=== PATIENT | male | born 1975 | race Caucasian/White ===

== ENCOUNTER 2016-10-20 19:37 | Emergency (ER) | payer BC ==
--- NOTE | 2016-10-20 22:45 | ED NURSING NOTES ---
Clinical Report - Nurses [facility] [address] [place] [address] 10/20/2016 19:38 Patient: GABO MURGUIA TRIAGE Triage time 19:44. Acuity: LEVEL 4. Chief Complaint: RIGHT LOWER EXTREMITY SWELLING. LEFT LOWER EXTREMITY SWELLING. Alert. No acute distress. SEPSIS SCREEN: Sepsis Screen: negative. Negative (no infection suspected/documented). --19:49 Marcio De La Garza R.N. 19:44 10/20/16. BP: 148/86 (regular adult cuff) taken on the left arm, via an automated monitor, while lying. HR: 57 (bradycardic). RR: 18 (regular, unlabored and normal). O2 saturation: 100% on room air. Temp: 98.4 F (oral). Pain level now: 0/10. --19:49 Marcio De La Garza R.N. Weight: 102 kg stated. Height/Length: 74 inches Per Patient. BMI: 28.9. --19:45 Marcio De La Garza R.N. Medications Indomethacin Oral. --19:47 Marcio De La Garza R.N. LamISIL [place] External. --19:47 Marcio De La Garza R.N. Medication/allergy information source: the patient. --19:49 Marcio De La Garza R.N. Allergies Ampicillin. --19:48 Marcio De La Garza R.N. Penicillin. --19:48 Marcio De La Garza R.N. History Arrived by private vehicle. Historian: patient. Unaccompanied. Primary physician (Dr. Allison). ( Gabo is 10 weeks post shoulder surgery and given permission to workout; he has been sodium loading by licking himalayan salts and taking potassium. Sent from [facility] (Konrad Forman, provider) to work-up. Gabo said "I did a leg routine on Monday night, and yesterday I noticed my legs started swelling; I stopped sodium loading yesterday; this AM it seemed like it went down but not much and I got a little concerned about it."). 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 SOCIAL HX: Never smoker. Occasional alcohol use. No drug use. He has not traveled outside the [place] No infectious disease exposure. ABUSE ASSESSMENT: Abuse assessment: The patient was asked "Do you feel safe in your home?" and "Has anyone hurt you or threatened to hurt you?". No report of abuse. SELF HARM ASSESSMENT: A self harm assessment was performed. The patient answered "no" to the question "Do you have thoughts of harming or killing yourself?" and "Have you recently had thoughts about harming or killing others?". FALL RISK ASSESSMENT: Fall risk assessment completed. No fall risk identified. NUTRITIONAL RISK ASSESSMENT: The nutritional risk assessment revealed no deficiencies. FUNCTIONAL ASSESSMENT: Functional assessment: no impairments noted. LEARNING NEEDS ASSESSMENT: The learning needs assessment revealed no barriers. SKIN INTEGRITY ASSESSMENT: Skin integrity risk assessment completed. No skin integrity risk identified. --19:49 Marcio De La Garza R.N. ADDITIONAL SURGERIES: Hernia Repair. Shoulder Surgery. --19:49 Marcio De La Garza R.N. Assessment GENERAL / NEURO / PSYCH: Alert. Oriented X 4. Appears in no acute distress. Armando Coma Scale: 15- eyes open spontaneously (4); best verbal response- oriented x 4 (5); best motor response- obeys commands (6). Patient appears calm and cooperative. RESPIRATORY: Respirations not labored. EXTREMITIES: Bilateral 2+ pitting edema of the lower extremities involving both ankles. SKIN: Skin is warm and dry. --19:49 Marcio De La Garza R.N. Interventions ID band on patient. To treatment room. --19:49 Marcio De La Garza R.N. PHYSICAL ASSESSMENT 19:45. Ambulatory to room. GENERAL / NEURO / PSYCH: Oriented X 4. Alert. Appears in no acute distress. No weakness. No numbness. RESPIRATORY: No respiratory distress. Respirations not labored. Breath sounds within normal limits. CVS: Heart sounds within normal limits. Pulses: right radial 2+, left radial 2+, right dorsalis pedis 2+, left dorsalis pedis 2+, right posterior tibial 1+ and left posterior tibial 1+. EXTREMITIES: Bilateral 2+ pitting edema of the lower extremities involving both ankles. Capillary refill is less than 2 seconds in the extremities. Extremities exhibit normal ROM. Neuro-vascular status intact to the extremity. Normal gait. No extremity erythema. No increased warmth on the extremities. Right leg: swelling. Right ankle: swelling. Left leg: swelling. Left ankle: swelling. SKIN: Skin intact. Skin is warm and dry. --23:15 Marcio De La Garza R.N. NURSING PROGRESS NOTES 20:20 10/20/2016 Site #1 started via IV in the right antecubital space with an 20g angiocath, with aseptic technique and good blood return; one attempt. Blood drawn: rainbow set. Labeled in the presence of the patient and sent to the lab. Saline lock flushed with 10 mL saline. --20:20 Marcio De La Garza R.N. 19:45. The initial plan of care for this patient has been created This plan of care was discussed with the patient. master brewer, pulse oximeter and NIBP monitor placed on patient; serger- Lead II. Neuro-vascular extremity check distal to injury: pulses intact, severe edema present, capillary refill <2 seconds and sensation intact. Patient gowned. Warming measures: blanket applied. Reassurance given to the patient. Two patient identifiers checked. Call light placed in reach. Side rails up x 1. Bed placed in lowest position. Brakes of bed on. --20:36 Marcio De La Garza R.N. The patient is calm and resting quietly. GENERAL / NEURO / PSYCH: Alert. Oriented X 4. RESPIRATORY: No respiratory distress. SKIN: Skin is warm and dry. --20:37 Marcio De La Garza R.N. 20:15 10/20/16. BP: 123/76 (regular adult cuff) taken on the left arm, via an automated monitor, while lying. HR: 50 (regular and bradycardic). RR: 16 (regular, unlabored and normal). O2 saturation: 98% on room air. --20:37 Marcio De La Garza R.N. 22:15 10/20/2016 Started bag #1 1000 mL IV Fluids IV NS (Saline); at 1000 mL/hr over 1 hour(s) via site #1. Allergies verified and confirmed 5 rights. IV patency established. IV site checked: no pain, redness, or swelling. IV flushed thoroughly pre- and post-medication administration. Completed per protocol. --22:15 Marcio De La Garza R.N. The patient is calm and resting quietly. GENERAL / NEURO / PSYCH: Alert. Oriented X 4. RESPIRATORY: No respiratory distress. SKIN: Skin is warm and dry. --22:16 Marcio De La Garza R.N. 22:15 10/20/16. BP: 129/91 (regular adult cuff) taken on the left arm, via an automated monitor, while lying. HR: 51 (bradycardic). O2 saturation: 100% on room air. --22:16 Marcio De La Garza R.N. DISPOSITION / DISCHARGE Condition at departure: stable. The goals identified in the patient's plan of care were met. No learning barriers present. Discharge instructions provided and reviewed with the patient. Patient verbalized understanding. Written instructions provided in Icelandic. ( Gabo verbalizes understanding of all d/c instructions including need to f/u with Dr. Allison. He has no questions and voices no concerns at this time.). The patient was discharged by the nurse practitioner. He was discharged home and unaccompanied at time of discharge. He left the Emergency Department ambulatory and via private vehicle. Patient driving. ARMANDO COMA SCORE: Armando Coma Scale: 15- eyes open spontaneously (4); best verbal response- oriented x 4 (5); best motor response- obeys commands (6). --23:10 Marcio De La Garza R.N. 23:08 10/20/16. BP: 134/99 (regular adult cuff) taken on the left arm, via an automated monitor, while lying. HR: 44 (regular, bradycardic and strong). RR: 16 (regular, unlabored and normal). O2 saturation: 100% on room air. Temp: 97.8 F (oral). Pain level now: 0/10. --23:10 Marcio De La Garza R.N. 23:10 10/20/2016 Site #1 removed upon discharge. Catheter intact. Bandaid applied. --23:10 Marcio De La Garza R.N. Departure time: 23:12. --23:12 Marcio De La Garza R.N. Locked/Released at 10/20/2016 23:16 by Marcio De La Garza R.N.
--- NOTE | 2016-10-20 22:45 | ED CLINICAL REPORT ---
Clinical Report - Physicians/Mid Levels [facility] [address] [place] [address] 10/20/2016 19:38 Patient: GABO MURGUIA Time Seen: 1953; upon arrival, initial patient contact, initial documentation, patient care assumed. Arrived- By private vehicle. Historian- patient. HISTORY OF PRESENT ILLNESS Chief Complaint: LOWER EXTREMITY SWELLING. The quality is noted to be (no pain). No radiation. Not worsened by anything and relieved by anything. This started about 2 days ago and is still present. It was abrupt in onset and has been constant. Symptoms located in the area of the right thigh, left thigh, right ankle, right knee, right leg, right foot, left knee, left leg, left foot and left ankle. The patient has not had redness. He has had new onset of localized mild swelling of the right upper leg, mild swelling of the left upper leg, mild swelling of the right knee, mild swelling of the left knee, mild swelling of the right lower leg, mild swelling of the left lower leg, mild swelling of the right ankle, mild swelling of the left ankle, mild swelling of the right foot and mild swelling of the left foot. No difficulty walking. No bladder dysfunction, bowel dysfunction, sensory loss or motor loss. 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 Patient denies an injury. Similar symptoms previously: None. Recent medical care: The patient was seen recently in a clinic. ( sent here from clinic for further eval). REVIEW OF SYSTEMS No chest pain, difficulty breathing, fever, vomiting or diarrhea. All systems otherwise negative, except as recorded above. PAST HISTORY See nurses notes. Substance abuse. SOCIAL HISTORY Never smoker. History of drug use. Is a recovering addict. No recent travel. Is a local resident. FAMILY HISTORY Negative. ADDITIONAL NOTES The nursing notes have been reviewed with agreement regarding the chief complaint, HPI, ROS, PMH and patient medications and allergies. PHYSICAL EXAM Vital Signs: 10/20/2016 19:44 BP: 148/86. HR: 57. RR: 18. O2 saturation: 100%. Temp: 98.4 F. Pain level now: 0/10. Have been reviewed as normal and appear to be correct. Appearance: Alert. Oriented X3. No acute distress. Eyes: Pupils equal, round and reactive to light. Eyes normal inspection. Neck: Normal inspection. Neck supple. CVS: Normal heart rate and rhythm. Heart sounds normal. Respiratory: No respiratory distress. Breath sounds normal. Back: Normal inspection. No tenderness. ROM normal. Skin: Skin intact. Skin warm and dry. Normal skin color. Normal skin turgor. Extremities: Lower extremities exhibit normal ROM. Lower extremity edema present. No signs of infection involving the lower extremities. Bilateral non-pitting edema of the lower extremities involving both feet, both ankles, both lower legs and both thighs. No calf tenderness. Extremities otherwise negative. Gait: Normal gait. No limping gait. He was able to bear weight. Pain did not prevent testing gait. Neuro, Vascular and Tendons: No pulse deficit present. Lower extremity capillary refill not prolonged. Neuro: Oriented X 3. No motor deficit. No sensory deficit. LABS, X-RAYS, AND EKG Laboratory Tests: UA-Culture if indicated: (ALLY: 10/20/2016 20:00) ( MsgRcvd 10/20/2016 22:06) Final results Test Result Flag Units (Reference) URINE COLOR YELLOW URINE APPEARANCE CLEAR URINE GLUCOSE NEGATIVE (NEGATIVE) URINE BILIRUBIN NEGATIVE (NEGATIVE) URINE KETONE NEGATIVE (NEGATIVE) URINE SPECIFIC GRAVITY <= 1.005 L (1.010-1.030) URINE PH 6.0 (5.0-8.0) URINE PROTEIN NEGATIVE (NEGATIVE) URINE UROBILINOGEN 0.2 EU/dL (0.2-1.0) URINE NITRITE NEGATIVE (NEGATIVE) URINE BLOOD NEGATIVE (NEGATIVE) URINE LEUK ESTERASE NEGATIVE (NEGATIVE) URINE RBC NONE SEEN rbc/hpf (0-1) URINE WBC NONE SEEN wbc/hpf (0-1) URINE EPITHELIAL CELLS 0-1 EPI/hpf (0-5) URINE BACTERIA NONE SEEN (NONE SEEN) URINE COMMENT CULT NOT INDICATED URINE CULTURES ARE SET-UP BASED ON THE FOLLOWING CRITERIA:POSITIVE NITRITEPOSITIVE LEUKOCYTE ESTERASEGREATER THAN 10 WHITE BLOOD CELLSMODERATE (2+) OR GREATER BACTERIA CBC w Diff: (ALLY: 10/20/2016 20:15) ( [facility] 10/20/2016 20:29) Final results Test Result Flag Units (Reference) WHITE BLOOD COUNT 4.6 K/uL (4.5-11.5) RED BLOOD COUNT 3.87 L M/uL (4.50-5.90) HEMOGLOBIN 13.6 gm/dL (13.5-17.5) HEMATOCRIT 40.1 L % (41.0-53.0) MEAN CELL VOLUME 104 H fL (80-100) MEAN CORPUSCULAR HGB 35 H pg (26-34) MEAN CORPUSCULAR HGB CONC 34 g/dL (31-37) RED CELL DISTRIBUTION WIDTH 14.8 % (11.6-14.8) PLATELET COUNT 197 K/uL (150-400) NEUTROPHIL % 63.2 % (50-75) LYMPH % 28.8 % (25-40) MONO % 7.1 % (3-14) EOSINOPHIL % 0.6 % (0-4) BASOPHIL % 0.3 % (0-2) [id number]: (ALLY: 10/20/2016 20:15) ( [facility] 10/20/2016 20:39) Final results Test Result Flag Units (Reference) D-DIMER QUANTITATIVE 0.29 ug/mLFEU (0.27-0.52) The primary value of this quantitative assay relates toits negative predictive value (i.e. exclusion) of pulmonaryembolism/deep vein thrombosis/DIC.Elevated levels of d-dimer may also occur with:, age, cancer, inflammation, liver disease,post-op, infection, hematoma, coronary disease, peripheralarteriopathy, bleeding disorders and thrombolytic treatment.Results should be correlated with other clinical andradiological data.Testing Methodology: Latex Immunoassay CMP: (ALLY: 10/20/2016 20:15) ( [facility] 10/20/2016 21:11) Final results Test Result Flag Units (Reference) GLUCOSE 102 mg/dL (70-110) BUN 25 H mg/dL (7-18) CREATININE 1.2 mg/dL (0.6-1.3) Estimated GFR >60 mL/min Estimated GFR- >60 mL/min Note: Persistent reduction over 3 months in eGFR<60 mL/min/1.73 m2 defines CKD. Patients with eGFR values>=60 mL/min/1.73 m2 may also have CKD if evidence ofpersistent proteinuria. Additional information may be foundat [email or web address].org. SODIUM 141 mmol/L (136-145) POTASSIUM 4.8 mmol/L (3.5-5.1) CHLORIDE 106 mmol/L (98-107) CARBON DIOXIDE 31 mmol/L (21-32) CALCIUM 9.4 mg/dL (8.5-10.1) TOTAL PROTEIN 6.6 g/dL (6.4-8.2) ALBUMIN 3.9 g/dL (3.3-5.0) BILIRUBIN, TOTAL 0.4 mg/dL (0.0-1.0) ALKALINE PHOSPHATASE 50 U/L (46-116) AST (SGOT) 51 H U/L (15-37) ALT (SGPT) 88 H U/L (12-78) CPK 795 H U/L (24-260) CK-MB 9.3 H ng/mL (0.5-3.2) %CKMB 1.2 % (0.0-4.0) . PROGRESS AND PROCEDURES Course of Care: 20:32 10/20/16. pt has brief eliana, nothing alarming, see report for full details. Patient counseled in person regarding the patient's stable condition, test results and diagnosis. Differential Diagnosis: Other possible considerations: dvt, rhabdo, ketoacidosis, substance abuse, hyerkalemia, hypernatremia, kidney failure/insufficiency, dehydration. Above considerations are based on history and physical exam. Differential diagnosis was discussed with patient. Disposition: Discharged home in good and improved condition (22:45). Condition: good and stable. CLINICAL IMPRESSION Bilateral pedal edema secondary to unknown cause. INSTRUCTIONS Warnings: GENERAL WARNINGS: Return or contact your physician immediately if your condition worsens or changes unexpectedly, if not improving as expected, or if other problems arise. Specifically return if problem worsens. Follow-up: Follow up with your doctor in about three days even if well. Call for an appointment. Summary of care provided to patient. Understanding of the discharge instructions verbalized by patient. (Electronically signed by Debi Jones A.R.N.P. 10/21/2016 15:27)
--- NOTE | 2016-10-20 22:45 | ED NURSING NOTES ---
Clinical Report - Nurses [facility] [address] [place] [address] 10/20/2016 19:38 Patient: GABO MURGUIA TRIAGE Triage time 19:44. Acuity: LEVEL 4. Chief Complaint: RIGHT LOWER EXTREMITY SWELLING. LEFT LOWER EXTREMITY SWELLING. Alert. No acute distress. SEPSIS SCREEN: Sepsis Screen: negative. Negative (no infection suspected/documented). --19:49 Marcio De La Garza R.N. 19:44 10/20/16. BP: 148/86 (regular adult cuff) taken on the left arm, via an automated monitor, while lying. HR: 57 (bradycardic). RR: 18 (regular, unlabored and normal). O2 saturation: 100% on room air. Temp: 98.4 F (oral). Pain level now: 0/10. --19:49 Marcio De La Garza R.N. Weight: 102 kg stated. Height/Length: 74 inches Per Patient. BMI: 28.9. --19:45 Marcio De La Garza R.N. Medications Indomethacin Oral. --19:47 Marcio De La Garza R.N. LamISIL [place] External. --19:47 Marcio De La Garza R.N. Medication/allergy information source: the patient. --19:49 Marcio De La Garza R.N. Allergies Ampicillin. --19:48 Marcio De La Garza R.N. Penicillin. --19:48 Marcio De La Garza R.N. History Arrived by private vehicle. Historian: patient. Unaccompanied. Primary physician (Dr. Allison). ( Gabo is 10 weeks post shoulder surgery and given permission to workout; he has been sodium loading by licking himalayan salts and taking potassium. Sent from [facility] (Konrad Forman, provider) to work-up. Gabo said "I did a leg routine on Monday night, and yesterday I noticed my legs started swelling; I stopped sodium loading yesterday; this AM it seemed like it went down but not much and I got a little concerned about it."). 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 SOCIAL HX: Never smoker. Occasional alcohol use. No drug use. He has not traveled outside the [place] No infectious disease exposure. ABUSE ASSESSMENT: Abuse assessment: The patient was asked "Do you feel safe in your home?" and "Has anyone hurt you or threatened to hurt you?". No report of abuse. SELF HARM ASSESSMENT: A self harm assessment was performed. The patient answered "no" to the question "Do you have thoughts of harming or killing yourself?" and "Have you recently had thoughts about harming or killing others?". FALL RISK ASSESSMENT: Fall risk assessment completed. No fall risk identified. NUTRITIONAL RISK ASSESSMENT: The nutritional risk assessment revealed no deficiencies. FUNCTIONAL ASSESSMENT: Functional assessment: no impairments noted. LEARNING NEEDS ASSESSMENT: The learning needs assessment revealed no barriers. SKIN INTEGRITY ASSESSMENT: Skin integrity risk assessment completed. No skin integrity risk identified. --19:49 Marcio De La Garza R.N. ADDITIONAL SURGERIES: Hernia Repair. Shoulder Surgery. --19:49 Marcio De La Garza R.N. Assessment GENERAL / NEURO / PSYCH: Alert. Oriented X 4. Appears in no acute distress. Armando Coma Scale: 15- eyes open spontaneously (4); best verbal response- oriented x 4 (5); best motor response- obeys commands (6). Patient appears calm and cooperative. RESPIRATORY: Respirations not labored. EXTREMITIES: Bilateral 2+ pitting edema of the lower extremities involving both ankles. SKIN: Skin is warm and dry. --19:49 Marcio De La Garza R.N. Interventions ID band on patient. To treatment room. --19:49 Marcio De La Garza R.N. PHYSICAL ASSESSMENT 19:45. Ambulatory to room. GENERAL / NEURO / PSYCH: Oriented X 4. Alert. Appears in no acute distress. No weakness. No numbness. RESPIRATORY: No respiratory distress. Respirations not labored. Breath sounds within normal limits. CVS: Heart sounds within normal limits. Pulses: right radial 2+, left radial 2+, right dorsalis pedis 2+, left dorsalis pedis 2+, right posterior tibial 1+ and left posterior tibial 1+. EXTREMITIES: Bilateral 2+ pitting edema of the lower extremities involving both ankles. Capillary refill is less than 2 seconds in the extremities. Extremities exhibit normal ROM. Neuro-vascular status intact to the extremity. Normal gait. No extremity erythema. No increased warmth on the extremities. Right leg: swelling. Right ankle: swelling. Left leg: swelling. Left ankle: swelling. SKIN: Skin intact. Skin is warm and dry. --23:15 Marcio De La Garza R.N. NURSING PROGRESS NOTES 20:20 10/20/2016 Site #1 started via IV in the right antecubital space with an 20g angiocath, with aseptic technique and good blood return; one attempt. Blood drawn: rainbow set. Labeled in the presence of the patient and sent to the lab. Saline lock flushed with 10 mL saline. --20:20 Marcio De La Garza R.N. 19:45. The initial plan of care for this patient has been created This plan of care was discussed with the patient. monitoring analyst, pulse oximeter and NIBP monitor placed on patient; monitoring analyst- Lead II. Neuro-vascular extremity check distal to injury: pulses intact, severe edema present, capillary refill <2 seconds and sensation intact. Patient gowned. Warming measures: blanket applied. Reassurance given to the patient. Two patient identifiers checked. Call light placed in reach. Side rails up x 1. Bed placed in lowest position. Brakes of bed on. --20:36 Marcio De La Garza R.N. The patient is calm and resting quietly. GENERAL / NEURO / PSYCH: Alert. Oriented X 4. RESPIRATORY: No respiratory distress. SKIN: Skin is warm and dry. --20:37 Marcio De La Garza R.N. 20:15 10/20/16. BP: 123/76 (regular adult cuff) taken on the left arm, via an automated monitor, while lying. HR: 50 (regular and bradycardic). RR: 16 (regular, unlabored and normal). O2 saturation: 98% on room air. --20:37 Marcio De La Garza R.N. 22:15 10/20/2016 Started bag #1 1000 mL IV Fluids IV NS (Saline); at 1000 mL/hr over 1 hour(s) via site #1. Allergies verified and confirmed 5 rights. IV patency established. IV site checked: no pain, redness, or swelling. IV flushed thoroughly pre- and post-medication administration. Completed per protocol. --22:15 Marcio De La Garza R.N. The patient is calm and resting quietly. GENERAL / NEURO / PSYCH: Alert. Oriented X 4. RESPIRATORY: No respiratory distress. SKIN: Skin is warm and dry. --22:16 Marcio De La Garza R.N. 22:15 10/20/16. BP: 129/91 (regular adult cuff) taken on the left arm, via an automated monitor, while lying. HR: 51 (bradycardic). O2 saturation: 100% on room air. --22:16 Marcio De La Garza R.N. DISPOSITION / DISCHARGE Condition at departure: stable. The goals identified in the patient's plan of care were met. No learning barriers present. Discharge instructions provided and reviewed with the patient. Patient verbalized understanding. Written instructions provided in Salvadorean. ( Gabo verbalizes understanding of all d/c instructions including need to f/u with Dr. Allison. He has no questions and voices no concerns at this time.). The patient was discharged by the nurse practitioner. He was discharged home and unaccompanied at time of discharge. He left the Emergency Department ambulatory and via private vehicle. Patient driving. ARMANDO COMA SCORE: Armando Coma Scale: 15- eyes open spontaneously (4); best verbal response- oriented x 4 (5); best motor response- obeys commands (6). --23:10 Marcio De La Garza R.N. 23:08 10/20/16. BP: 134/99 (regular adult cuff) taken on the left arm, via an automated monitor, while lying. HR: 44 (regular, bradycardic and strong). RR: 16 (regular, unlabored and normal). O2 saturation: 100% on room air. Temp: 97.8 F (oral). Pain level now: 0/10. --23:10 Marcio De La Garza R.N. 23:10 10/20/2016 Site #1 removed upon discharge. Catheter intact. Bandaid applied. --23:10 Marcio De La Garza R.N. Departure time: 23:12. --23:12 Marcio De La Garza R.N. Locked/Released at 10/20/2016 23:16 by Marcio De La Garza R.N.
--- NOTE | 2016-10-20 22:45 | ED ORDER SUMMARY ---
..... Patient: GABO MURGUIA OrderSheet [facility] VisitID: [id number] [address] [place] [address] 41y, M Registration Date/Time: 10/20/2016 ORDER SHEET Weight: 102.0 kg (stated) Allergies: Ampicillin, Penicillin GENERAL ORDERS: CBC w Diff Urgent (20:03 10/20/2016 HBivens A.R.N.P.) (Ack 20:06 SRedmond) (20:19 JDeElena R.N.) CMP Urgent (20:03 10/20/2016 HBivens A.R.N.P.) (Ack 20:06 SRedmond) (20:19 JDeElena R.N.) CPK Urgent (20:03 10/20/2016 HBivens A.R.N.P.) (Ack 20:06 SRedmond) (20:19 JDeElena R.N.) D-Dimer Urgent (20:03 10/20/2016 HBivens A.R.N.P.) (Ack 20:06 SRedmond) (20:19 JDeElena R.N.) UA-Culture if indicated Urgent (21:23 10/20/2016 HBivens A.R.N.P.) (Ack 21:28 SRedmond) (22:04 JDeElena R.N.) MEDICATION ORDERS: IV FLUIDS: IV Saline Lock (20:03 10/20/2016 HBivens A.R.N.P.) (Ack 20:09 JDeElena R.N.) (20:20 JDeElena R.N.) IV NS : initial bolus 1000 mL (1000 mL/hr), then none - (NOW) (21:40 10/20/2016 HBivens A.R.N.P.) (Ack 22:04 JDeElena R.N.) (22:15 JDeElena R.N.) ORDER SHEET NOTES: [Electronically signed by Marcio De La Garza R.N. (23:16 10/20/2016)] [Electronically signed by Debi Jones A.R.N.P. (15:27 10/21/2016)] [Electronically locked/signed by Marcio De La Garza R.N. (23:16 10/20/2016)]
--- NOTE | 2016-10-20 22:45 | ED ORDER SUMMARY ---
..... Patient: GABO MURGUIA OrderSheet [facility] VisitID: [id number] [address] [place] [address] 41y, M Registration Date/Time: 10/20/2016 ORDER SHEET Weight: 102.0 kg (stated) Allergies: Ampicillin, Penicillin GENERAL ORDERS: CBC w Diff Urgent (20:03 10/20/2016 HBivens A.R.N.P.) (Ack 20:06 SRedmond) (20:19 JDeElena R.N.) CMP Urgent (20:03 10/20/2016 HBivens A.R.N.P.) (Ack 20:06 SRedmond) (20:19 JDeElena R.N.) CPK Urgent (20:03 10/20/2016 HBivens A.R.N.P.) (Ack 20:06 SRedmond) (20:19 JDeElena R.N.) D-Dimer Urgent (20:03 10/20/2016 HBivens A.R.N.P.) (Ack 20:06 SRedmond) (20:19 JDeElena R.N.) UA-Culture if indicated Urgent (21:23 10/20/2016 HBivens A.R.N.P.) (Ack 21:28 SRedmond) (22:04 JDeElena R.N.) MEDICATION ORDERS: IV FLUIDS: IV Saline Lock (20:03 10/20/2016 HBivens A.R.N.P.) (Ack 20:09 JDeElena R.N.) (20:20 JDeElena R.N.) IV NS : initial bolus 1000 mL (1000 mL/hr), then none - (NOW) (21:40 10/20/2016 HBivens A.R.N.P.) (Ack 22:04 JDeElena R.N.) (22:15 JDeElena R.N.) ORDER SHEET NOTES: [Electronically signed by Marcio De La Garza R.N. (23:16 10/20/2016)] [Electronically signed by Debi Jones A.R.N.P. (15:27 10/21/2016)] [Electronically locked/signed by Marcio De La Garza R.N. (23:16 10/20/2016)]
--- NOTE | 2016-10-21 15:27 | ED MAR SUMMARY ---
..... Medication Administration Record [facility] [address] [place] [address] Patient: GABO MURGUIA Visit ID: [id number] 41y, M Weight: 102.0 kg Height/Length: 74 in BMI: 28.9 ALLERGIES: Penicillin, Ampicillin Start 22:15 10/20/2016 Marcio De La Garza R.N. Medication Administered: IV NS (SALINE), Dose: IV Fluids over 1 hour(s), Rate: 1000 mL/hr, Dispensed: 1000 mL bag, Site: #1 right AC. Medication Ordered: IV NS : initial bolus 1000 mL (1000 mL/hr), then none - (NOW).
--- NOTE | 2016-10-21 15:27 | ED DISCHARGE INSTRUCTIONS ---
Patient: GABO MURGUIA General Instructions [facility] VisitID: [id number] [place] [address] 41y, M Registration Date/Time: 10/20/2016 Bilateral pedal edema secondary to unknown cause. INSTRUCTIONS Warnings: GENERAL WARNINGS: Return or contact your physician immediately if your condition worsens or changes unexpectedly, if not improving as expected, or if other problems arise. Specifically return if problem worsens. Follow-up: Follow up with your doctor in about three days even if well. Call for an appointment. Summary of care provided to patient. Understanding of the discharge instructions verbalized by patient. ADDITIONAL INFORMATION Leg Swelling (Unilateral) Swelling of the arms, feet, ankles, and legs is called edema. It is due to excess fluid collecting in the tissues. Because of gravity, excess fluid in the body settles to the lowest part. That is why the legs and feet are most affected. Some of the causes for swelling in one leg only include: Foot or leg infection Venous insufficiency (congestion of blood in the deep veins of the legs) Varicose veins (dilated veins of the lower leg) Garters or anything that constricts the leg Insect bite or sting on the foot or leg Injury or recent surgery on the foot or leg Blood clot in the deep veins of the leg Medical treatment will depend on the cause of your swelling. Home Care: Do not wear garments that constrict your legs (such as garters). Elevate your legs while lying or sitting. Take any medicines as directed. If infection, injury, or recent surgery is the cause for your swelling, stay off your legs as much as possible until symptoms improve. If your doctor says that venous insufficiency or varicose veins is the cause of leg swelling, do not sit or engine lathe set up operator one place for long periods of time. Take breaks and walk around every few hours. Brisk walking is a good exercise and helps circulate the congested bloodin your leg. Talk to your doctor about the use of support stockings to prevent daytime leg swelling. Follow Up with your doctor or as advised by our staff. Get Prompt Medical Attention if any of the following occur: Shortness of breath or chest pain with breathing Coughing up blood Increased swelling, warmth or redness of the leg, ankle or foot Calf pain Fever of 100.4F (38C) or higher, or as directed by your healthcare provider Weakness, dizziness or fainting You have been given the following additional information: Peripheral Edema, Unilateral (Electronically signed by Debi Jones A.R.N.P. 10/21/2016 15:27)
--- NOTE | 2016-10-21 15:27 | ED DISCHARGE INSTRUCTIONS ---
Patient: GABO MURGUIA General Instructions [facility] VisitID: [id number] [place] [address] 41y, M Registration Date/Time: 10/20/2016 Bilateral pedal edema secondary to unknown cause. INSTRUCTIONS Warnings: GENERAL WARNINGS: Return or contact your physician immediately if your condition worsens or changes unexpectedly, if not improving as expected, or if other problems arise. Specifically return if problem worsens. Follow-up: Follow up with your doctor in about three days even if well. Call for an appointment. Summary of care provided to patient. Understanding of the discharge instructions verbalized by patient. ADDITIONAL INFORMATION Leg Swelling (Unilateral) Swelling of the arms, feet, ankles, and legs is called edema. It is due to excess fluid collecting in the tissues. Because of gravity, excess fluid in the body settles to the lowest part. That is why the legs and feet are most affected. Some of the causes for swelling in one leg only include: Foot or leg infection Venous insufficiency (congestion of blood in the deep veins of the legs) Varicose veins (dilated veins of the lower leg) Garters or anything that constricts the leg Insect bite or sting on the foot or leg Injury or recent surgery on the foot or leg Blood clot in the deep veins of the leg Medical treatment will depend on the cause of your swelling. Home Care: Do not wear garments that constrict your legs (such as garters). Elevate your legs while lying or sitting. Take any medicines as directed. If infection, injury, or recent surgery is the cause for your swelling, stay off your legs as much as possible until symptoms improve. If your doctor says that venous insufficiency or varicose veins is the cause of leg swelling, do not sit or building insulation supervisor one place for long periods of time. Take breaks and walk around every few hours. Brisk walking is a good exercise and helps circulate the congested bloodin your leg. Talk to your doctor about the use of support stockings to prevent daytime leg swelling. Follow Up with your doctor or as advised by our staff. Get Prompt Medical Attention if any of the following occur: Shortness of breath or chest pain with breathing Coughing up blood Increased swelling, warmth or redness of the leg, ankle or foot Calf pain Fever of 100.4F (38C) or higher, or as directed by your healthcare provider Weakness, dizziness or fainting You have been given the following additional information: Peripheral Edema, Unilateral (Electronically signed by Debi Jones A.R.N.P. 10/21/2016 15:27)
--- NOTE | 2016-10-21 15:27 | ED MED RECONCILIATION SUMMARY ---
Patient: GAOB MURGUIA Medication Reconciliation Report [facility] VisitID: [id number] [address] [place] [place] [address] 41y, M Registration Date/Time: 10/20/2016 Weight: 102.0 kg Height/Length: 74 in. BMI: 28.9 ALLERGIES: Ampicillin, Penicillin The patient's Home Medications are listed below: THE FOLLOWING MEDICATIONS NEED TO BE RECONCILED: Indomethacin Oral LamISIL [place] External The source(s) of the original Home Medication information: patient The following Medications were given to the patient in the Emergency Department: IV NS IV Fluids bolus 0, then 1000 mL/hr, administered: 10/20/2016 10:15:00 PM The following Medications were prescribed to the patient: None.
--- NOTE | 2016-10-21 15:27 | ED MAR SUMMARY ---
..... Medication Administration Record [facility] [address] [place] [address] Patient: GABO MURGUIA Visit ID: [id number] 41y, M Weight: 102.0 kg Height/Length: 74 in BMI: 28.9 ALLERGIES: Penicillin, Ampicillin Start 22:15 10/20/2016 Marcio De La Garza R.N. Medication Administered: IV NS (SALINE), Dose: IV Fluids over 1 hour(s), Rate: 1000 mL/hr, Dispensed: 1000 mL bag, Site: #1 right AC. Medication Ordered: IV NS : initial bolus 1000 mL (1000 mL/hr), then none - (NOW).
--- NOTE | 2016-10-21 15:27 | ED MED RECONCILIATION SUMMARY ---
Patient: GABO MURGUIA Medication Reconciliation Report [facility] VisitID: [id number] [address] [place] [place] [address] 41y, M Registration Date/Time: 10/20/2016 Weight: 102.0 kg Height/Length: 74 in. BMI: 28.9 ALLERGIES: Ampicillin, Penicillin The patient's Home Medications are listed below: THE FOLLOWING MEDICATIONS NEED TO BE RECONCILED: Indomethacin Oral LamISIL [place] External The source(s) of the original Home Medication information: patient The following Medications were given to the patient in the Emergency Department: IV NS IV Fluids bolus 0, then 1000 mL/hr, administered: 10/20/2016 10:15:00 PM The following Medications were prescribed to the patient: None.
== END 2016-10-20 23:14 | disposition home or self-care (01) ==
LOC: ED SRH 19:37
DX: R60.9 Edema, unspecified (principal); Z88.0 Allergy status to penicillin; Z88.1 Allergy status to other antibiotic agents
CPT/HCPCS: 90004; 90100; 90617; 91556; 92610; 95059